=== PATIENT | female | born 1945 | race Caucasian/White ===

== ENCOUNTER → 2016-07-09 | Outpatient (CLI) | payer MEDICARE ==
[~2016-07-09] MED LIST: ASPI81TA11 PO; ATOR20TA PO; BIOT5000 PO; CELE1CAP8 PO; CEPH500C3 PO; CITRTAB7 PO; CLON0.5T PO; COEN400C PO; FURO20TA PO; LORTA5 PO; LOSA50TA PO; MAGN250T13 PO; METO25 PO; OCUVTAB PO; VENL75 PO; ZEGE20CA PO
--- NOTE | 2016-07-25 10:22 | RSPPFT ---
DATE OF PROCEDURE: 07/09/16 COMMENTS: Spirometry with FVC of 1.9, FEV1 of 1.7, FEV1/FVC ratio at 85%. TLC is 100% of predicted. Diffusion capacity is normal. IMPRESSION: 1. No evidence of airways obstruction or restriction. 2. Normal diffusion capacity. 3. Positive and significant response to acutely inhaled bronchodilator.
== END ==
LOC: HRSP 11:43
PROVIDERS: ATTEND Internal Medicine Cardiovascular Disease
DX: R06.02 Shortness of breath (principal)
CPT/HCPCS: 94060; 94726; 94729

== ENCOUNTER → 2017-01-02 | Outpatient (CLI) | payer MEDICARE ==
[~2017-01-02] MED LIST changes: +ALBUAER3 INH; +ATOR20TA15 PO; +BIOT10TA PO; +CLON1TAB PO; +CO Q200C3 PO; +DIVA250T3 PO; +DOXY1TAB71 PO; +LEVO25TA4 PO; +MAGN500T2 PO; +METO25TA3 PO; +MILK500C2 PO; +MONT10TA4 PO; +OCUVCAP2 PO; +OMEGCAP PO; +PANT40TA3 PO; +PERC5TAB12 PO; +POTA99TA4 PO; +REST0.05 EACH EYE; +SUCR1TAB PO; +SYSTSOL EACH EYE; +ZOFR8TAB PO
[2017-01-02 13:48] LABS: BASOPHIL % 0.5 % (0.0-2.0); EOSINOPHIL # 0.2 TH/MM3 (0-0.4); EOSINOPHIL % 2.5 % (0.0-4.0); HEMO FLAGS DIFF FINAL; LYMPH % 30.7 % (9.0-44.0); LYMPHOCYTE # 2.7 TH/MM3 (1.0-4.8); MEAN CELL VOLUME 97.7 FL (80.0-100.0); MEAN CORPUSCULAR HEMOGLOBIN 32.6 PG (27.0-34.0); MEAN CORPUSCULAR HGB CONC 33.3 % (32.0-36.0); MONO % 9.1 % (0.0-8.0); NEUT % 57.2 % (16.0-70.0); PLATELET COUNT 365 TH/MM3 (150-450); RED BLOOD COUNT 3.99 MIL/MM3 (4.00-5.30); RED CELL DISTRIBUTION WIDTH 13.8 % (11.6-17.2); WHITE BLOOD COUNT 8.7 TH/MM3 (4.0-11.0)
[2017-01-02 13:57] LABS: BLOOD, URINE NEG (NEG); COMMENT (UR) CULT NOT INDICATED; CULTURE IF INDICATED CULT NOT INDICATED; GLUCOSE,URINE NEG (NEG); KETONE, URINE NEG (NEG); NITRITE,URINE NEG (NEG); URINE COLOR LIGHT-YELLOW (YELLW/STRAW)
--- NOTE | 2017-01-04 01:20 | EKG ---
Date Performed: 01/02/2017 Time Performed: 13:08:13 PTAGE: 71 years EKG: Sinus rhythm LOW QRS VOLTAGE IN PRECORDIAL LEADS NONSPECIFIC T-WAVE ABNORMALITY BORDERLINE ECG Compared to the PREVIOUS TRACING from 08/27/15, no significant change DOCTOR: Spencer Cisneros Interpretating Date/Time 01/04/2017 01:19:12
== END ==
LOC: CPRE 12:40
PROVIDERS: ATTEND Obstetrics & Gynecology
DX: Z01.810 Encounter for preprocedural cardiovascular examination (principal); Z01.812 Encounter for preprocedural laboratory examination; R10.2 Pelvic and perineal pain; R94.31 Abnormal electrocardiogram [ECG] [EKG]
CPT/HCPCS: 36415; 81001; 85025; 93005

== ENCOUNTER 2017-01-08 10:14 | Observation (INO) | payer MEDICARE ==
--- NOTE | 2017-01-07 15:01 | MH ---
cc: PHIL CHOWDHURY DATE OF ADMISSION: 01/08/2017 ADMITTING DIAGNOSIS 1. Pelvic pain. 2. Uterine fibroid. 3. Possible torsion. HISTORY OF PRESENT ILLNESS The patient is a 71-year-old single white female, para 2-0-0-2, having pelvic discomfort and pelvic heaviness for at least three months. Initial CT scan on 10/31/2016 showed a mass at the apex of the uterus 6 cm. The ovaries appeared to be normal. There was a possible cyst in the liver. MRI of the abdomen on 11/15/2016 showed benign fatty change in the liver. Ultrasound 11/15/2016 showed a 6 cm fundal mass, possible exophytic fibroid. Endoscopy and colonoscopy in December 2016 were benign. She is now admitted for laparoscopy with planned hysterectomy. She was seen by me on 12/09/2016. Her Pap smear was normal. PAST MEDICAL HISTORY PREVIOUS SURGERY 1. 1964 left breast cyst. 2. 1978 cholecystectomy. 3. 2001 hospitalized for blood clot, DVT, after a broken foot on Coumadin. 4. 2009 tummy tuck, breast list and augmentation. MEDICATIONS 1. Gabapentin. 2. Levothyroxine. 3. Losartan. 4. Sucralfate. 5. Atorvastatin. 6. Furosemide. 7. Pantoprazole. 8. Montelukast. 9. Metoprolol. 10. Clonazepam. 11. Multiple vitamins. 12. ProAir inhaler. 13. Advair. 14. Restasis. ALLERGIES None TRANSFUSIONS None. OB HISTORY Two vaginal deliveries. SOCIAL HISTORY Retired. . Alcohol occasional. Tobacco none. Drugs none. FAMILY HISTORY Noncontributory. PHYSICAL EXAMINATION GENERAL: A well-nourished, well-developed white female. VITAL SIGNS: Stable. HEENT: Normal. CHEST: Clear. HEART: Regular rate. BREASTS: Symmetrical. ABDOMEN: Benign. PELVIC: Normal external genitalia and BUS. Vagina is normal. Cervix is normal. Uterus is enlarged, about 14 weeks' size. Adnexa nonpalpable. ASSESSMENT As above. PLAN She is now admitted for laparoscopy, planned LASH-BSO, possible DHIRAJ-BSO. Discussed possible need for additional surgery pending findings on pathology. The patient elected to proceed. MD SAMIRA Justice/IZA /2:16 PM /2:47 PM
[~2017-01-08] VITALS: Ht 172.7 cm; Wt 94.0 kg
[2017-01-08] MEDS: D5-1/2 NS + KCL 20 MEQ INJ 1,000 ML IV SCH ×2 (00:15→15:00)
[~2017-01-08 10:14] MED LIST changes: -ATOR20TA PO; -BIOT5000 PO; +BUPIVACAINE LIPOSOME PF 1.3% 20 ML VIAL ONE; -CELE1CAP8 PO; -CEPH500C3 PO; -CITRTAB7 PO; -CLON0.5T PO; -COEN400C PO; -LORTA5 PO; -MAGN250T13 PO; -METO25 PO; -OCUVTAB PO; -PERC5TAB12 PO; -VENL75 PO; -ZEGE20CA PO; -ZOFR8TAB PO
[2017-01-08] MEDS ORDERED: SODIUM CHLORID 0.9% 500 ML IV PRN (11:15)
[2017-01-08] MEDS ORDERED: ceFAZolin 1,000 MG/NS 100 ML IV SCH ×2 (11:15)
[2017-01-08] MEDS ORDERED: CHLORHEXIDINE GLUCONATE 2 % 1 PACK (2 CLOTHS) TOPICAL PRN (11:15)
[2017-01-08] MEDS ORDERED: ACETAMINOPHEN 1000 MG/100 ML VIAL IV SCH (11:15)
[2017-01-08] MEDS ORDERED: METOPROLOL TARTRATE 25 MG TAB PO PRN (11:15)
[2017-01-08] MEDS ORDERED: INSULIN HUMAN REGULAR 1,000 UNITS/10 ML VIAL SQ PRN (11:15)
[2017-01-08] MEDS ORDERED: LACTATED RINGER'S 1000 ML IV PRN (11:15)
[2017-01-08] MEDS ORDERED: POVIDONE IODINE 5% (ANTISEPSIS KIT) 4 APPLICATIONS EACH NARE PRN (11:15)
[2017-01-08] MEDS ORDERED: KETOROLAC TROMETHAMINE 30 MG/ML (IVP) VIAL IV PUSH ONE (12:00)
[2017-01-08] MEDS ORDERED: ePHEDrine/NS 25 MG/5 ML SYR IV ONE (12:00)
[2017-01-08] MEDS ORDERED: ONDANSETRON HCL 4 MG/2 ML VIAL IV PUSH ONE (12:00)
[2017-01-08] MEDS ORDERED: LACTATED RINGER'S 1000 ML INJ 1,000 ML IV ONE (12:00)
[2017-01-08] MEDS ORDERED: NEOSTIGMINE 3 MG/3 ML SYR IV ONE (12:00)
[2017-01-08] MEDS ORDERED: PROPOFOL 200 MG/20 ML AMP IV ONE (12:00)
[2017-01-08] MEDS ORDERED: HYDROmorphone HCL PF 2 MG/ML VIAL ONE (12:33)
[2017-01-08] MEDS ORDERED: APREPITANT 40 MG CAP ONE (12:34)
[2017-01-08] MEDS ORDERED: ONDANSETRON ODT 4 MG TAB PO PRN (14:30)
[2017-01-08] MEDS ORDERED: SODIUM CHLORIDE 0.9% FLUSH 10 ML FLUSH IV FLUSH PRN (14:30)
[2017-01-08] MEDS ORDERED: diphenhydrAMINE HCL 25 MG CAP PO PRN (14:30)
[2017-01-08] MEDS: KETOROLAC TROMETHAMINE 30 MG/ML (IVP) VIAL IVP SCH ×2 (14:30→22:09)
[2017-01-08] MEDS ORDERED: ONDANSETRON HCL 4 MG/2 ML VIAL IV PRN (14:30)
[2017-01-08] MEDS ORDERED: PROMETHAZINE INJ 25 MG/ML VIAL IM PRN (14:30)
[2017-01-08] MEDS ORDERED: HYDROmorphone HCL PF 1 MG/ML VIAL IV PRN (14:30)
[2017-01-08] MEDS ORDERED: *morphine SULFATE 8 MG/ML PERIprocedure ONLY ONE ×2 (15:00→15:15)
[2017-01-08] MEDS ORDERED: ONDANSETRON INJ 8 MG in DEXTROSE 5% IN WATER INJ 50 ML IV PUSH PRN ×4 (15:15)
--- NOTE | 2017-01-08 15:29 | MP ---
cc: PHIL CHOWDHURY DATE OF SURGERY: 01/08/2017 PREOPERATIVE DIAGNOSIS 1. Pelvic pain. 2. Uterine fibroids. POSTOPERATIVE DIAGNOSIS 1. Pelvic pain. 2. Uterine fibroids. 3. Torsion fundal fibroid. PROCEDURE Laparoscopy, LASH, BSO. ANESTHESIA General endotracheal. SURGEON Phil Chowdhury MD. MATH PROFESSOR RINKU Buckner. ESTIMATED BLOOD LOSS 100 cc. FLUIDS 1.5 liters crystalloid. OBJECTIVE FINDINGS Following the induction of adequate general endotracheal anesthesia the patient was prepped and draped supine on the operating table in the dorsal lithotomy position in the usual sterile fashion with the bladder being drained via Reid catheterization. The abdomen was opened through a 3 cm curving supraumbilical incision using a knife to cut down from the skin to the fascia. The fascia was opened transversely with a knife and the peritoneum entered bluntly and extended. The mini GelPort was placed. The laparoscope was inserted. A 5 port was placed in the left lower quadrant and an AirSeal port in the right lower quadrant. The uterus itself was normal size. There was about a 6-7 cm right fundal fibroid on a narrow stalk, pedunculated. There was torsion. The ovaries and tubes were normal. Cul-de-sacs were clear. Liver edge was normal. There were some adhesions in the right upper quadrant from previous surgery. Working first on the left a Harmonic scalpel was used to take the left utero-ovarian pedicle, left round ligament, left broad ligament, left side of the bladder flap and left uterine vessels, the same on the right. The Harmonic scalpel was now used to amputate the fundus from the cervix. The pouch was inserted to extract the fundus and the torsion fibroid intact. Attention was now directed to the left adnexa. Adhesions were lysed with the Harmonic scalpel. The left ovarian pedicle and left residual mesosalpinx were taken with the Harmonic scalpel and the specimen extracted from the GelPort site, and the same on the right. Irrigation was performed. A low pressure test was done. There was no bleeding. The ureters showed good peristalsis. The operative sites were closed with Evicel. The GelPort was now removed. The peritoneum was sutured with a running 2-0 Vicryl, the fascia with a running locking stitch of 0 Vicryl corner to midline and tied, subcu with running 3-0 Vicryl and skin with running subcuticular 3-0 Monocryl. The scope was now reinserted in the lower port sites to check the upper GelPort site which was well-closed with no entrapment. The pelvis was inspected. There was no bleeding. The scope was removed, gas was allowed to escape. The small ports were removed and sutured with 3-0 Monocryl subcuticular. Dermabond was applied. All counts were correct. The patient was taken out of the [facility]. She was awakened and taken to the recovery room in good condition. MD SAMIRA Justice/IZA /2:49 PM /3:08 PM MTDD
[2017-01-08] MEDS ORDERED: ALBUTEROL SULFATE 90 MCG/ACT HFA 18 GM INHALER INH PRN (16:30)
[2017-01-08] MEDS ORDERED: PATIENT OWN MEDICATION EACH EYE PRN (16:45)
[2017-01-08 17:00] VITALS: BP 105/61; PULSE 70; RESP 12; TEMP 97.7; O2SAT 95
[2017-01-08 20:00] VITALS: BP 123/71; PULSE 79; RESP 18; TEMP 95.9; O2SAT 92
[2017-01-08] MEDS: clonazePAM 1 MG TAB PO SCH (20:22)
[2017-01-08] MEDS: ACETAMINOPHEN 1000 MG/100 ML VIAL IV SCH (20:22)
[2017-01-08] MEDS: SUCRALFATE 1 GM TAB PO SCH (20:23)
[2017-01-08] MEDS: PANTOPRAZOLE SOD 40 MG DELAYED RELEASE TAB PO SCH (20:23)
[2017-01-08] MEDS: METOPROLOL TARTRATE 25 MG TAB PO SCH (20:23)
[2017-01-08] MEDS: DOCUSATE SODIUM 100 MG CAP PO SCH (20:24)
[2017-01-08] MEDS: SODIUM CHLORIDE 0.9% FLUSH 10 ML FLUSH IV FLUSH SCH (20:24)
[2017-01-08 20:29] LABS: HEMATOCRIT 37.5 % (35.0-46.0); REVIEW FLAG FINAL
[2017-01-08] MEDS ORDERED: ATORVASTATIN 20 MG TAB PO SCH (21:00)
[2017-01-08] MEDS ORDERED: MONTELUKAST SODIUM 10 MG TAB PO SCH (21:00)
[2017-01-08] MEDS: PATIENT OWN MEDICATION EACH EYE SCH (22:09)
[2017-01-09] VITALS: BP 100/61; PULSE 76; RESP 18; TEMP 96.8; O2SAT 93
[2017-01-09] MEDS: KETOROLAC TROMETHAMINE 30 MG/ML (IVP) VIAL IVP SCH ×2 (03:24→09:35)
[2017-01-09 04:00] VITALS: BP 121/72; PULSE 68; RESP 16; TEMP 96.1; O2SAT 97
[2017-01-09] MEDS: DOCUSATE SODIUM 100 MG CAP PO SCH (05:07)
[2017-01-09] MEDS: ACETAMINOPHEN 1000 MG/100 ML VIAL IV SCH ×2 (05:07→12:25)
[2017-01-09] MEDS ORDERED: LEVOTHYROXINE SODIUM 25 MCG TAB PO SCH (06:00)
[2017-01-09 08:00] VITALS: BP 110/58; PULSE 67; RESP 20; TEMP 97.2; O2SAT 96
[2017-01-09] MEDS: PATIENT OWN MEDICATION EACH EYE SCH (09:00)
[2017-01-09] MEDS ORDERED: POTASSIUM GLUCONATE PO SCH (09:00)
[2017-01-09] MEDS ORDERED: LOSARTAN 50 MG TAB PO SCH (09:00)
[2017-01-09] MEDS ORDERED: FUROSEMIDE 20 MG TAB PO SCH (09:00)
[2017-01-09] MEDS ORDERED: DIVALPROEX SODIUM E.R. 250 MG TAB PO SCH (09:00)
[2017-01-09] MEDS ORDERED: ALUMINUM/MAGNESIUM/SIMETH 30 ML CUP PO PRN (09:00)
[2017-01-09 09:29] LABS: AUTOMATED NEUTROPHIL # 9.3 TH/MM3 (1.8-7.7); BASOPHIL % 0.2 % (0.0-2.0); HEMATOCRIT 34.7 % (35.0-46.0); HEMO FLAGS DIFF FINAL; LYMPH % 11.8 % (9.0-44.0); LYMPHOCYTE # 1.4 TH/MM3 (1.0-4.8); MEAN CELL VOLUME 99.7 FL (80.0-100.0); MEAN CORPUSCULAR HGB CONC 32.1 % (32.0-36.0); MONO % 7.3 % (0.0-8.0); NEUT % 80.7 % (16.0-70.0); PLATELET COUNT 309 TH/MM3 (150-450); RED BLOOD COUNT 3.48 MIL/MM3 (4.00-5.30); RED CELL DISTRIBUTION WIDTH 13.9 % (11.6-17.2); WHITE BLOOD COUNT 11.5 TH/MM3 (4.0-11.0)
[2017-01-09] MEDS: SUCRALFATE 1 GM TAB PO SCH ×2 (09:31→12:24)
[2017-01-09] MEDS: clonazePAM 1 MG TAB PO SCH (09:32)
[2017-01-09] MEDS: PANTOPRAZOLE SOD 40 MG DELAYED RELEASE TAB PO SCH (09:34)
[2017-01-09] MEDS: METOPROLOL TARTRATE 25 MG TAB PO SCH (09:34)
[2017-01-09] MEDS: SODIUM CHLORIDE 0.9% FLUSH 10 ML FLUSH IV FLUSH SCH (09:35)
[2017-01-09 09:51] LABS: BICARBONATE 25.9 MEQ/L (21.0-32.0); POTASSIUM 4.5 MEQ/L (3.5-5.1)
[2017-01-09 12:23] VITALS: BP 114/69; PULSE 64; RESP 20; TEMP 97.8; O2SAT 96
[2017-01-09] MEDS: D5-1/2 NS + KCL 20 MEQ INJ 1,000 ML IV SCH (12:25)
[2017-01-09] MEDS ORDERED: PERC5TAB12 PO ×2 (15:17→15:19)
[2017-01-09] MEDS ORDERED: ZOFR8TAB PO (15:20)
== END 2017-01-09 15:52 | disposition home or self-care (01) ==
LOC: HSDC 10:14 → HSDI 14:23 → HOCA 16:57
PROVIDERS: ADMIT Obstetrics & Gynecology; ATTEND Obstetrics & Gynecology
DX: D25.9 Leiomyoma of uterus, unspecified (principal); R10.2 Pelvic and perineal pain; I10 Essential (primary) hypertension
CPT/HCPCS: 00840; 58542; 64488; 80048; 85014; 85018; 85025; 88307; 94150; 96374; 96375; 96376; C9290; G0378; J0131; J0690; J1170; J1885; J2270; J2405; J2710; J3010; J3480; J7120; J8501

== ENCOUNTER → 2017-08-18 | Outpatient (CLI) | payer MEDICARE ==
[~2017-08-18] VITALS: Ht 172.7 cm; Wt 84.0 kg
[~2017-08-18] MED LIST changes: -ASPI81TA11 PO; +ASPI81TA23 PO; +BENZOCAINE 20% ORAL SPR 60 ML CAN OROPHARYNG ONE; -BUPIVACAINE LIPOSOME PF 1.3% 20 ML VIAL ONE; +LIDOCAINE 2% JELLY 5 ML TUBE OTHER ONE; -OCUVCAP2 PO; +PERC5TAB12 PO; +ZOFR8TAB PO
[2017-08-18 07:45] VITALS: BP 136/74; PULSE 80; RESP 18; TEMP 97.9; O2SAT 98
== END ==
LOC: HEND 06:19
PROVIDERS: ATTEND Internal Medicine Gastroenterology
DX: K21.9 Gastro-esophageal reflux disease without esophagitis (principal)
CPT/HCPCS: 91010

== ENCOUNTER → 2017-09-19 | Outpatient (CLI) | DX: R06.02 Shortness of breath (principal); J44.9 Chronic obstructive pulmonary disease, unspecified ==